=== PATIENT | female | born 2000 | race Caucasian/White ===

== ENCOUNTER 2024-02-03 19:57 | Emergency (ER) | payer SELFPAY ==
[~2024-02-03] VITALS: Ht 170.2 cm; Wt 63.0 kg
[2024-02-03 20:05] VITALS: TEMP 97.8; O2SAT 100
[2024-02-03] MEDS ORDERED: AMOX-494 MT (22:22)
[2024-02-03] MEDS ORDERED: IBUP-2029 MT (22:22)
[2024-02-03 22:46] VITALS: BP 148/77; PULSE 97; RESP 19
== END 2024-02-03 22:49 | disposition home or self-care (01) ==
LOC: ER 19:57
DX: H72.91 Unspecified perforation of tympanic membrane, right ear (principal); H92.01 Otalgia, right ear
CPT/HCPCS: 99283